=== PATIENT | female | born 1950 | race Caucasian/White ===

== ENCOUNTER 2022-01-22 06:35 | Day surgery (SDC) | payer MEDICARE ==
[~2022-01-22] VITALS: Ht 162.6 cm; Wt 91.4 kg
[2022-01-22] VITALS (10 sets, daily range): BP systolic 113–147; BP diastolic 55–90
[2022-01-22] MEDS ORDERED: albumin 25% 100mL bottle x 1 IV PRN (07:10)
[2022-01-22] MEDS ORDERED: ATEN-236 PO (07:23)
[2022-01-22] MEDS ORDERED: DOXY100T2 PO (07:23)
[2022-01-22] MEDS ORDERED: NORT75CA PO (07:23)
[2022-01-22] MEDS ORDERED: POTA-208 PO (07:23)
[2022-01-22] MEDS ORDERED: DIAZ5TAB4 PO (07:23)
[2022-01-22] MEDS ORDERED: NABU-139 PO (07:23)
[2022-01-22] MEDS ORDERED: FURO40TA4 PO (07:23)
[2022-01-22] MEDS ORDERED: LEVO25TA7 PO (07:23)
[2022-01-22] MEDS ORDERED: ROSU20TA31 PO (07:23)
[2022-01-22] MEDS ORDERED: FAMO40TA8 PO (07:23)
[2022-01-22] MEDS ORDERED: CHOL20002 PO (07:30)
[2022-01-22] MEDS ORDERED: PROTOPIC (07:30)
[2022-01-22] MEDS ORDERED: MAG OXIDE PO (07:30)
[2022-01-22] MEDS ORDERED: CLOBETASOL (07:30)
[2022-01-22] MEDS ORDERED: VITAMIN B12 (07:30)
--- NOTE | 2022-01-22 10:08 | NUR ---
Pt is having continuous coughing, VSS. Spoke to Kami MARTINEZ, CXR ordered.
--- NOTE | 2022-01-22 10:25 | NUR ---
CXR done, daughter at bedside. Written and Verbal DC instructions given to pt and daughter verbalize understanding.
--- NOTE | 2022-01-22 10:50 | NUR ---
CXR read by Dr. Sommers. No pneumothorax seen. Pt states she is feeling better, less coughing. Ready for DC.
--- NOTE | 2022-01-22 11:00 | NUR ---
DC to home with daughter. Transferred to private car via WC, pt able to transfer self from WC to car.
== END 2022-01-22 11:00 | disposition home or self-care (01) ==
LOC: SSTAY O 06:35
PROVIDERS: ATTEND Radiology Diagnostic Radiology
DX: J90 Pleural effusion, not elsewhere classified (principal); I10 Essential (primary) hypertension; E03.9 Hypothyroidism, unspecified; E78.5 Hyperlipidemia, unspecified; Z86.16 Personal history of COVID-19; Z88.1 Allergy status to other antibiotic agents; Z88.8 Allergy status to other drugs, medicaments and biological substances; Z88.2 Allergy status to sulfonamides; Z79.899 Other long term (current) drug therapy
CPT/HCPCS: 32555; 71045; 87070

== ENCOUNTER 2022-04-11 11:01 | Day surgery (SDC) | payer MEDICARE ==
[~2022-04-11] VITALS: Ht 162.6 cm; Wt 88.3 kg
[2022-04-11 11:00] VITALS: BP 135/77
[~2022-04-11 11:01] MED LIST: ATEN-236 PO; CETI10TA15 PO; CHOL20002 PO; CLOB15CR11 TOP; CYAN500T46 PO; DIAZ5TAB4 PO; DUPI300S SQ; FAMO40TA8 PO; FLUT16SP11 BOTHNARES; FURO-150 PO; LEVO25TA7 PO; MAGN400C PO; MONT-40 PO; NORT75CA PO; OXYC-658 PO; POTA-208 PO; ROSU20TA31 PO; TACR60OI TOP; TIOT18CA3 IH
[2022-04-11] MEDS ORDERED: normal saline 1000ml 1,000 ML IV PRN (11:35)
[2022-04-11] MEDS ORDERED: ONDA8TAB13 PO (12:07)
[2022-04-11] MEDS ORDERED: DOXY-1 PO (12:07)
[2022-04-11] MEDS ORDERED: NABU-139 PO (12:08)
[2022-04-11] MEDS ORDERED: HYDR-3972 PO (12:10)
[2022-04-11] MEDS ORDERED: ATRNS (12:12)
[2022-04-11] MEDS ORDERED: LIDOcaine 1%/PF 5ML 10 MG/ML VIAL ONE ×2 (13:10→13:56)
[2022-04-11] MEDS ORDERED: midazolam 1 mg/ML 2ml injection ONE ×2 (13:10→13:58)
[2022-04-11] MEDS ORDERED: heparin sodium, porcine/PF 100unit/ml 5ML syringe ONE (13:10)
[2022-04-11] MEDS ORDERED: fentaNYL/PF 50MCG/1 ML 2ML syringe ONE (13:11)
[2022-04-11 14:42] VITALS: BP 135/77
[2022-04-11 15:00] VITALS: BP 138/71
[2022-04-11 15:15] VITALS: BP 131/60
[2022-04-11 15:30] VITALS: BP 131/65
== END 2022-04-11 16:00 | disposition home or self-care (01) ==
LOC: SSTAY O 11:01
PROVIDERS: ATTEND Radiology Vascular & Interventional Radiology
DX: C45.0 Mesothelioma of pleura (principal); Z88.8 Allergy status to other drugs, medicaments and biological substances; Z88.1 Allergy status to other antibiotic agents; Z88.2 Allergy status to sulfonamides; Z79.899 Other long term (current) drug therapy; Z83.3 Family history of diabetes mellitus; Z80.41 Family history of malignant neoplasm of ovary
CPT/HCPCS: 36561; 76937; 77001; 99152; 99153; C1788; J1642; J2250; J3010; J3490

== ENCOUNTER 2023-10-08 11:39 | Day surgery (SDC) | payer MEDICARE ==
[~2023-10-08] VITALS: Ht 165.1 cm; Wt 95.4 kg
[~2023-10-08 11:39] MED LIST changes: +ATRNS; +DOXY-1 PO; +HYDR-3972 PO; +NABU-139 PO; +ONDA8TAB13 PO; -OXYC-658 PO; -ROSU20TA31 PO; +ROSU20TA73 PO; -TIOT18CA3 IH
[2023-10-08] MEDS ORDERED: normal saline 1000ml 1,000 ML IV PRN (12:00)
[2023-10-08] MEDS ORDERED: heparin sodium, porcine/PF 100unit/ml 5ML syringe ONE (12:19)
== END 2023-10-08 12:45 | disposition home or self-care (01) ==
LOC: SSTAY O 11:39
PROVIDERS: ATTEND Radiology Diagnostic Radiology
DX: T82.598A Other mechanical complication of other cardiac and vascular devices and implants, initial encounter (principal); C45.0 Mesothelioma of pleura; Z79.01 Long term (current) use of anticoagulants; Z79.890 Hormone replacement therapy; Z79.899 Other long term (current) drug therapy; Z90.710 Acquired absence of both cervix and uterus; Z98.890 Other specified postprocedural states; Y71.2 Prosthetic and other implants, materials and accessory cardiovascular devices associated with adverse incidents
CPT/HCPCS: 96523; J1642; J7030; 85610; A4615; A6258